=== PATIENT | female | born 1990 | race Caucasian/White ===

== ENCOUNTER 2024-04-29 21:09 | Observation (INO) ==
[2024-04-29] MEDS: NS 0.9% 1000 ml BAG 1,000 ML IV ONE (22:16)
[2024-04-29 22:31] LABS: ABS Basophils 0.1 10^3/uL (0.0-0.1); ABS Eosinophils 0.2 10^3/uL (0.0-0.5); ABS Lymphocytes 1.7 10^3/uL (1.0-4.8); ABS Monocytes 0.7 10^3/uL (0.0-0.9); ABS Neutrophils 8.3 10^3/uL (1.5-7.6); Eosinophil % 1.8 %; Hematocrit 38.2 % (35-45); Hemoglobin 13.1 g/dL (11.5-14.3); Lymphocyte % 15.5 %; Mean Corpuscular Hemoglobin 29.8 pg (27-33); Mean Corpuscular Hgb Conc 34.2 g/dL (31-36); Mean Corpuscular Volume 87.1 fL (80-97); Mean Platelet Volume 7.4 fL (7.5-11.2); Platelet Count 295 10^3/uL (150-450); Red Blood Count 4.39 10^6/uL (3.63-4.92); Red Cell Distribution Width 13.2 % (12-17); White Blood Count 10.9 10^3/uL (3.8-11.8)
[2024-04-29 22:33] LABS: Urine Appearance Clear; Urine Bilirubin Negative (Negative); Urine Blood Negative (Negative); Urine Color Yellow; Urine Glucose Negative (Negative); Urine Ketones Negative (Negative); Urine Nitrite Negative (Negative); Urine Protein 1+ (>=30 mg/dL) (Negative); Urine Specific Gravity 1.022 (1.002-1.030); Urine Urobilinogen Negative (Negative)
[2024-04-29 22:46] LABS: Urine Benzodiazepine Screen None Detected (None Detect); Urine Cannabinoids Screen None Detected (None Detect); Urine Opiates Screen None Detected (None Detect)
[2024-04-29 22:50] LABS: INR 1.08 (0.83-1.13)
[2024-04-29 22:58] LABS: High Sens Troponin Baseline 3 pg/mL (<15)
[2024-04-29 23:04] LABS: Urine Bacteria Absent /HPF (Absent); Urine Red Blood Cell Trace(0-2/hpf) /HPF (0-Trace); Urine Squamous Epithelial Cell Present /HPF (Absent); Urine White Blood Cell Trace(0-5/hpf) /HPF (0-Trace)
[2024-04-29 23:27] LABS: ALT 13 U/L (7-52); AST 17 U/L (13-39); Albumin 4.2 g/dL (3.2-5.2); Albumin/Globulin Ratio 1.6 (1-3); Alcohol, S 14 mg/dL (<13); Alkaline Phosphatase 69 U/L (35-149); Anion Gap 7 mmol/L (2-16); Blood Urea Nitrogen 13 mg/dL (6-24); CO2 Carbon Dioxide 25 mmol/L (22-32); Calcium 8.9 mg/dL (8.6-10.3); Chloride 105 mmol/L (101-111); Creatine Kinase 150 U/L (10-223); Creatinine, Serum 0.98 mg/dL (0.51-0.95); Globulin 2.7 g/dL (2-4); Glucose 61 mg/dL (70-100); Magnesium 1.8 mg/dL (1.9-2.7); Potassium 3.8 mmol/L (3.5-5.0); Sodium 137 mmol/L (135-145); Total Bilirubin 0.2 mg/dL (0.2-1.0); Total Protein 6.9 g/dL (6.4-8.9); eGFR CKD-EPI 78.6 (>60)
[2024-04-29 23:34] LABS: HCG Pregnancy < 0.60 mIU/mL
[2024-04-29 23:43] LABS: TSH Ultra Thyroid Stim Horm 8.26 mcIU/mL (0.34-5.60)
[2024-04-29 23:53] LABS: High Sensitivity Troponin 1 Hr 3 pg/mL (<15)
[2024-04-30] MEDS ORDERED: Dextrose 50% Syringe 50 ml 25 GM/50 ML SYRINGE IV PUSH PRN (03:32)
[2024-04-30] MEDS: Magnesium Sulfate 2 gm BAG 2 GM/50 ML BAG IVPB ONE (03:38)
[2024-04-30 06:38] LABS: ABS Eosinophils 0.1 10^3/uL (0.0-0.5); ABS Lymphocytes 2.4 10^3/uL (1.0-4.8); ABS Monocytes 0.7 10^3/uL (0.0-0.9); ABS Neutrophils 6.6 10^3/uL (1.5-7.6); Eosinophil % 1.3 %; Hematocrit 36.1 % (35-45); Hemoglobin 12.3 g/dL (11.5-14.3); Lymphocyte % 24.1 %; Mean Corpuscular Hemoglobin 29.7 pg (27-33); Mean Corpuscular Hgb Conc 34.2 g/dL (31-36); Mean Corpuscular Volume 86.9 fL (80-97); Mean Platelet Volume 7.7 fL (7.5-11.2); Platelet Count 276 10^3/uL (150-450); Red Blood Count 4.15 10^6/uL (3.63-4.92); Red Cell Distribution Width 13.4 % (12-17); White Blood Count 9.8 10^3/uL (3.8-11.8)
[2024-04-30 07:12] LABS: Calcium 8.6 mg/dL (8.6-10.3); Creatinine, Serum 0.78 mg/dL (0.51-0.95); Potassium 4.1 mmol/L (3.5-5.0); eGFR CKD-EPI 103.4 (>60)
[2024-04-30 07:27] LABS: Magnesium 5.9 mg/dL (1.9-2.7)
[2024-04-30] MEDS: TIRZEPATIDE 7.5 MG/0.5 ML SUBCUT SCH (11:13)
[2024-05-01] MEDS: Calcium Carb (TUMS) 500 mg CHEW TAB PO PRN (02:13)
[2024-05-01 14:37] VITALS: BP 98/68
== END 2024-05-01 17:50 | disposition home or self-care (01) ==
LOC: ED 21:09 → EDHOLD 21:09 → SUATTDRO 04-30 03:28 → MED 04-30 11:35
PROVIDERS: ADMIT Internal Medicine; ATTEND Student in an Organized Health Care Education/Training Program